=== PATIENT | male | born 1950 | race Caucasian/White ===

== ENCOUNTER 2018-12-28 10:53 | Emergency (ER) | payer OTHER ==
[2018-12-28] MEDS ORDERED: Sodium Chloride 0.9% 1,000 ML ONE (11:16)
[2018-12-28 11:20] LABS: #Basophils 0.1 thou/uL (0.0-0.2); #Eosinphils 0.1 thou/uL (0.0-0.7); #Lymphocytes 1.6 thou/uL (1.20-3.40); #Monocytes 0.7 thou/uL (0.11-0.59); %Basophils 1.2 % (0.0-1.0); %Eosinophils 1.9 % (0.0-10.0); %Lymphocytes 29.2 % (21.0-51.0); %Monocytes 12.6 % (0.0-10.0); %Neutrophils 55.1 % (42.0-75.0); Hemoglobin 14.2 g/dL (14.0-18.0); Mean Corpuscular HGB CONC 32.5 g/dL (32.0-36.0); Mean Corpuscular Hemoglobin 30.8 pg (27.0-31.0); Mean Corpuscular Volume 94.8 fL (78.0-98.0); Platelet Count 246 thou/uL (130-400); RBC Distribution Width 11.5 % (11.5-14.5); Red Blood Cell (RBC) Count 4.59 mill/uL (4.70-6.10); White Blood Cell (WBC) Count 5.5 thou/uL (4.8-10.8)
[2018-12-28] MEDS ORDERED: Adacel (T-DAP) 0.5 ML SYRINGE ONE (11:21)
[2018-12-28 11:40] LABS: ALT (SGPT) 14 U/L (8-55); AST (SGOT) 26 U/L (5-34); Alkaline Phosphatase 48 U/L (40-150); Anion Gap 17 mmol/L (10-20); BUN (Urea Nitrogen) 8 mg/dL (8.4-25.7); Bilirubin, Total 0.6 mg/dL (0.2-1.2); Calc. Creatinine Clearance 0 mL/min (70-130); Calcium 9.2 mg/dL (7.8-10.44); Carbon Dioxide 21 mmol/L (23-31); Chloride 96 mmol/L (98-107); Estimated GFR-MDRD 86; Globulin 3.3 g/dL (2.4-3.5); Glucose 254 mg/dL (80-115); Potassium 4.6 mmol/L (3.5-5.1); Protein, Total 7.3 g/dL (5.8-8.1); Sodium 129 mmol/L (136-145)
--- NOTE | 2018-12-28 12:38 | RAD ---
RIGHT HAND THREE VIEWS: 12/28/18 HISTORY: Hand caught in table saw. FINDINGS: Comminuted fracture with multiple fragments involving the distal aspect of the second digit. There is associated deformity, soft tissue laceration injury. There does appear to be a punctate foreign body . IMPRESSION: Injury involving the distal aspect of the second digit. POS: [facility]
== END 2018-12-28 13:05 | disposition short-term general hospital (02) ==
LOC: NAV ERS 10:53
DX: S62.630A Displaced fracture of distal phalanx of right index finger, initial encounter for closed fracture (principal); S61.310A Laceration without foreign body of right index finger with damage to nail, initial encounter; E11.9 Type 2 diabetes mellitus without complications; I10 Essential (primary) hypertension; F17.210 Nicotine dependence, cigarettes, uncomplicated; Z79.4 Long term (current) use of insulin; Z79.899 Other long term (current) drug therapy; W31.2XXA Contact with powered woodworking and forming machines, initial encounter
CPT/HCPCS: 80053; 85025; 90471; 90715; 96361; 96374; J2270; J7050